=== PATIENT | female | born 1995 | race Caucasian/White ===

== ENCOUNTER 2016-07-08 16:13 | Outpatient (CLI) | payer OTHER, MEDICAID | END 2016-07-08 16:14 | disposition home or self-care (01) | DX: M25.551 Pain in right hip (principal); M54.5 Low back pain; R00.2 Palpitations ==

== ENCOUNTER 2016-09-15 13:20 | Outpatient (CLI) | payer OTHER ==
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
== END 2016-09-15 13:21 | disposition home or self-care (01) ==
LOC: DI 13:20
PROVIDERS: ATTEND Physician Assistant Medical
DX: M51.27 Other intervertebral disc displacement, lumbosacral region (principal); M47.897 Other spondylosis, lumbosacral region; M51.36 Other intervertebral disc degeneration, lumbar region; M43.17 Spondylolisthesis, lumbosacral region
CPT/HCPCS: 72148

== ENCOUNTER 2017-02-14 18:48 | Emergency (ER) | payer OTHER ==
[2017-02-14 19:19] LABS: BILIRUBIN,URINE NEGATIVE (NEGATIVE)
--- NOTE | 2017-02-14 19:20 | ED Physician Documentation ---
History of Present Illness - Stated complaint Stated Complaint: FEMALE - Chief complaint Chief Complaint: General - History obtained from History obtained from: Patient, Family - History of Present Illness Timing: How many days ago (6) Pain level max: 3 Pain level now: 3 Improved by: nothing Worsened by: urinating - Additonal information Additional information: Patient is a 21-year-old female who presents to the emergency department with dysuria for the past week. Was started on Macrobid, states that she has continued to progressively worsen and is now having pain in her kidneys bilaterally. No fevers. Has had nausea but no vomiting. no changes in sexual partner. no STD exposure Review of Systems Ten Systems: 10 systems reviewed and negative Constitutional: denies: Fever, Chills Ears: denies: Ear pain Nose: denies: Rhinorrhea / runny nose, Congestion Throat: denies: Sore throat Cardiac: denies: Chest pain / pressure Respiratory: denies: Cough GI: reports: Nausea. denies: Vomiting : reports: Dysuria, Frequency, Hesitancy, LMP (currently on her menses). denies: Discharge, Now EGA Skin: denies: Rash Musculoskeletal: denies: Neck pain PD PAST MEDICAL HISTORY - Past Medical History Respiratory: Asthma : Kidney stones Psych: Depression Musculoskeletal: Chronic back pain - Past Surgical History Past Surgical History: No - Present Medications Home Medications: Ambulatory Orders Medication Instructions Recorded Confirmed Cyclobenzaprine [Flexeril] 10 mg PO TID PRN #20 tablet 08/29/15 10/28/15 Hydrocodone/Acetaminophen 1 - 2 each PO Q6H PRN #14 tablet 08/29/15 10/28/15 [Hydrocodon-Acetaminophen 5-325] Cyclobenzaprine [Flexeril] 10 mg PO TID PRN #20 tablet 09/13/15 10/28/15 Ibuprofen [Motrin] 800 mg PO Q8H PRN #30 tablet 09/13/15 10/28/15 Oxycodone HCl/Acetaminophen 1 - 2 tab PO Q4H PRN #15 tablet 09/13/15 10/28/15 [Percocet 5-325 mg Tablet] Cyclobenzaprine [Flexeril] 10 mg PO TID PRN #10 tablet 04/15/16 Ciprofloxacin HCl [Cipro] 500 mg PO BID #20 tablet 02/14/17 - Allergies Allergies/Adverse Reactions: Allergies Allergy/AdvReac Type Severity Reaction Status Date / Time Penicillins Allergy Severe Hives Verified 02/14/17 18:52 Sulfa (Sulfonamide Allergy Unknown Nausea Verified 02/14/17 18:52 Antibiotics) milk Allergy Unknown Verified 02/14/17 18:52 - Social History Does the pt smoke?: No Smoking Status: Never smoker Does the pt drink ETOH?: Yes Does the pt have substance abuse?: No - Immunizations Immunizations are current?: Yes - POLST Patient has POLST: No PD ED PE NORMAL - Vitals Vital signs reviewed: Yes - General General: Alert and oriented X 3 - HEENT HEENT: Moist mucous membranes - Neck Neck: Supple, no meningeal sign - Cardiac Cardiac: RRR - Respiratory Respiratory: No respiratory distress, Clear bilaterally - Abdomen Abdomen: Soft, Non tender, Non distended - Female Female : Pt declined - Back Back: No spinal TTP, Other (mild B CVAT. ) - Derm Derm: Warm and dry - Neuro Neuro: Alert and oriented X 3 Results - Vitals Vitals: Vital Signs - 24 hr 02/14/17 02/14/17 18:50 19:35 Temperature 36.2 C L Heart Rate 99 86 Respiratory 16 16 Rate Blood Pressure 147/84 H 142/83 H O2 Saturation 97 100 Oxygen O2 Source Room air - Labs Labs: Laboratory Tests 02/14/17 19:17 Urine Color YELLOW Urine Clarity CLEAR Urine pH 6.0 Ur Specific [place] 1.020 Urine Protein NEGATIVE Urine Glucose (UA) NEGATIVE Urine Ketones NEGATIVE Urine Occult Blood MODERATE H Urine Nitrite NEGATIVE Urine Bilirubin NEGATIVE Urine Urobilinogen 0.2 (NORMAL) Ur Leukocyte Esterase NEGATIVE Urine RBC 0-5 Urine WBC 6-10 H Ur Squamous Epith Cells FEW Squamous Urine Bacteria Rare Ur Microscopic Review INDICATED Urine Culture Comments INDICATED Urine HCG, Qual NEGATIVE PD MEDICAL DECISION MAKING - ED course Complexity details: reviewed results, re-evaluated patient, considered differential, d/w patient, d/w family ED course: Patient is a 21-year-old female who presents to the emergency department with what appears to be a partially treated UTI and now developing bilateral flank pain, concern for early pyelonephritis. Urine was sent for culture. Will start on ciprofloxacin and follow-up with her PCP. She is very well-appearing, nontoxic. Afebrile. Patient counseled regarding signs and symptoms for which I believe and urgent re-evaluation would be necessary. Patient with good understanding of and agreement to plan and is comfortable going home at this time This document was made in part using voice recognition software. While efforts are made to proofread this document, sound alike and grammatical errors may occur. Departure - Departure Disposition: 01 Home, Self Care Clinical Impression: Pyelonephritis Condition: Good Instructions: ED Kidney Infec Female Follow-Up: Ariadna Linda PA-C [Primary Care Provider] - Within 1 week Prescriptions: Ciprofloxacin HCl [Cipro] 500 mg PO BID #20 tablet Comments: Return if you worsen. Take all antibiotics until gone. Discharge Date/Time: 02/14/17 19:54
[2017-02-14 19:22] LABS: HCG UR QUAL NEGATIVE; UA w/ MICROSCOPIC CHARGE YES
[2017-02-14 19:34] LABS: UR CULTURE IF IND INDICATED
[2017-02-14 19:37] VITALS: BP 142/83
[2017-02-14] MEDS ORDERED: CIPROFLOXACIN 250 MG TABLET PO STA (19:39)
[2017-02-14] MEDS ORDERED: CIPROFLOXACIN 250 MG TABLET PO ONE (19:47)
== END 2017-02-14 19:54 | disposition home or self-care (01) ==
LOC: ED 18:48
DX: N12 Tubulo-interstitial nephritis, not specified as acute or chronic (principal); J45.909 Unspecified asthma, uncomplicated; Z87.442 Personal history of urinary calculi
CPT/HCPCS: 81001; 81025; 87086; 99283; A9270; 81003

== ENCOUNTER 2017-02-20 08:00 | Outpatient (CLI) | payer OTHER | END 2017-02-20 08:01 | disposition home or self-care (01) | LOC: LAB.WCP 08:00 | PROVIDERS: ATTEND Physician Assistant Medical | DX: R30.0 Dysuria (principal) | CPT/HCPCS: 87086 ==

== ENCOUNTER 2017-02-25 20:55 | Outpatient (CLI) | payer OTHER ==
--- NOTE | 2017-02-25 22:10 | Ultrasound Preliminary Report ---
Exam: US RETROPERITONEAL IMPRESSION: Normal renal ultrasound. [facility] SITE ID: [id number]
--- NOTE | 2017-02-25 22:12 | Ultrasound Report ---
EXAM: RENAL ULTRASOUND EXAM DATE: 02/25/2017 09:40 PM. CLINICAL HISTORY: FLANK PAIN,RIGHT. COMPARISON: 01/31/2015 CT. TECHNIQUE: Real-time scanning was performed with static images obtained. FINDINGS: Right Kidney: 10.4 x 4.2 x 4.6 cm. Normal echotexture with no stones, contour-deforming masses, or hy dronephrosis. Left Kidney: 10.8 x 4.8 x 5 cm. Normal echotexture with no stones, contour-deforming masses, or hydro nephrosis. Bladder: Bilateral jets seen. The prevoid bladder volume was 518.7 cc. The postvoid bladder volume wa s 1.6 cc. Incidental simple appearing 2.4 cm left ovarian cyst. IMPRESSION: Normal renal ultrasound. [facility] Referring Provider Line: [phone] SITE ID: [id number]
== END 2017-02-25 20:56 | disposition home or self-care (01) ==
LOC: DI 20:55
PROVIDERS: ATTEND Physician Assistant Medical
DX: R10.9 Unspecified abdominal pain (principal)
CPT/HCPCS: 76770

== ENCOUNTER → 2017-02-25 | Outpatient (CLI) | payer OTHER ==
[2017-02-25 12:32] LABS: BASOPHILS # (AUTO) 0.1 10^3/uL (0.0-0.1); BASOPHILS % (AUTO) 0.7 %; EOSINOPHILS # (AUTO) 0.1 10^3/uL (0.0-0.7); EOSINOPHILS % (AUTO) 1.6 %; HCT - HEMATOCRIT 37.7 % (37.0-47.0); LYMPHOCYTES # (AUTO) 3.5 10^3/uL (1.5-3.5); LYMPHOCYTES % (AUTO) 42.1 %; MEAN CORPUSCULAR HGB CONC 34.6 g/dL (32.0-36.0); MEAN CORPUSCULAR VOLUME 83.7 fL (81.0-99.0); MEAN PLATELET VOLUME 7.4 fL (7.9-10.8); MONOCYTES # (AUTO) 0.7 10^3/uL (0.0-1.0); MONOCYTES % (AUTO) 8.6 %; NEUTROPHILS # (AUTO) 3.9 10^3/uL (1.5-6.6); RED CELL DISTRIBUTION WIDTH 12.3 % (12.0-15.0); UNCORRECTED WHITE BLOOD COUNT 8.2 x10^3/uL; WHITE BLOOD COUNT 8.2 x10^3/uL (4.8-10.8)
[2017-02-25 12:57] LABS: ALBUMIN/GLOBULIN RATIO 1.1 (1.0-2.2); BILIRUBIN,TOTAL 0.5 mg/dL (0.2-1.0); CALCIUM 8.9 mg/dL (8.5-10.3); CREATININE 0.6 mg/dL (0.4-1.0); POTASSIUM 3.7 mmol/L (3.5-5.0); TOTAL PROTEIN 7.3 g/dL (6.7-8.2)
== END ==
LOC: LAB.WCP 08:00
PROVIDERS: ATTEND Physician Assistant Medical
DX: R10.9 Unspecified abdominal pain (principal)
CPT/HCPCS: 36415; 80053; 85025

== ENCOUNTER 2017-08-13 10:10 | Outpatient (CLI) | payer OTHER | END 2017-08-13 10:11 | LOC: LAB.WCP 10:10 | PROVIDERS: ATTEND Family Medicine | DX: N39.9 Disorder of urinary system, unspecified (principal); N89.8 Other specified noninflammatory disorders of vagina | CPT/HCPCS: 87086; 87480; 87510; 87660 ==

== ENCOUNTER 2018-07-06 08:00 | Outpatient (CLI) | payer OTHER ==
[2018-07-06 18:51] LABS: BASOPHILS # (AUTO) 0.1 10^3/uL (0.0-0.1); BASOPHILS % (AUTO) 0.7 %; EOSINOPHILS # (AUTO) 0.2 10^3/uL (0.0-0.7); EOSINOPHILS % (AUTO) 2.1 %; HGB - HEMOGLOBIN 13.2 g/dL (12.0-16.0); LYMPHOCYTES # (AUTO) 2.5 10^3/uL (1.5-3.5); LYMPHOCYTES % (AUTO) 31.9 %; MEAN CORPUSCULAR HEMOGLOBIN 28.2 pg (27.0-31.0); MEAN CORPUSCULAR HGB CONC 33.1 g/dL (32.0-36.0); MEAN CORPUSCULAR VOLUME 85.2 fL (81.0-99.0); MEAN PLATELET VOLUME 7.4 fL (7.9-10.8); MONOCYTES # (AUTO) 0.7 10^3/uL (0.0-1.0); MONOCYTES % (AUTO) 8.7 %; NEUTROPHILS # (AUTO) 4.5 10^3/uL (1.5-6.6); NEUTROPHILS % (AUTO) 56.6 %; PLT - PLATELET COUNT 329 10^3/uL (130-450); RED BLOOD COUNT 4.67 10^6/uL (4.20-5.40); RED CELL DISTRIBUTION WIDTH 12.7 % (12.0-15.0); WHITE BLOOD COUNT 7.9 x10^3/uL (4.8-10.8)
[2018-07-06 19:01] LABS: ALBUMIN 3.8 g/dL (3.2-5.5); ALBUMIN/GLOBULIN RATIO 1.1 (1.0-2.2); BILIRUBIN,TOTAL 0.8 mg/dL (0.2-1.0); CALCIUM 9.3 mg/dL (8.5-10.3); CREATININE 0.8 mg/dL (0.4-1.0); PHOSPHORUS 2.7 mg/dL (2.5-4.6); TOTAL PROTEIN 7.4 g/dL (6.7-8.2)
== END 2018-07-06 23:59 | disposition home or self-care (01) ==
LOC: LAB.WCP 08:00
PROVIDERS: ATTEND Physician Assistant Medical
DX: R00.0 Tachycardia, unspecified (principal)
CPT/HCPCS: 36415; 80053; 81001; 81003; 83735; 84100; 84443; 85025; 87086

== ENCOUNTER 2018-07-08 08:00 | Outpatient (CLI) | payer OTHER ==
[2018-07-08 19:35] LABS: BILIRUBIN,URINE NEGATIVE (NEGATIVE); GLUCOSE, URINE (UA) NEGATIVE (NEGATIVE); KETONES,URINE (UA) NEGATIVE (NEGATIVE); LEUKOCYTE ESTERASE, URINE SMALL (NEGATIVE); NITRITE,URINE NEGATIVE (NEGATIVE); OCCULT BLOOD,URINE SMALL (NEGATIVE); PH,URINE 6.5 PH (5.0-7.5); PROTEIN,URINE NEGATIVE (NEGATIVE); UROBILINOGEN,URINE 0.2 (NORMAL) E.U./dL (NORMAL)
[2018-07-08 19:38] LABS: CLARITY,URINE CLEAR (CLEAR)
[2018-07-08 20:00] LABS: BACTERIA,URINE Moderate /HPF (None Seen); RBC,URINE 0-5 /HPF (0-5); SQUAMOUS EPITHELIAL CELL,UR MOD Squamous (<= Few)
== END 2018-07-08 23:59 | disposition home or self-care (01) ==
LOC: LAB.R 08:00
PROVIDERS: ATTEND Physician Assistant Medical
DX: N10 Acute pyelonephritis (principal); R00.0 Tachycardia, unspecified
CPT/HCPCS: 81001; 81003; 87086

== ENCOUNTER 2018-08-10 13:01 | Outpatient (CLI) | payer OTHER ==
--- NOTE | 2018-08-12 11:31 | Ultrasound Report ---
Reason: CERVICAL LYMPHADENOPATHY,LEFT Procedure Date: 08/10/2018 Accession Number: [id number] / [id number] Procedure: US - Head or Neck Soft Tissue CPT Code: FULL RESULT: EXAM: NECK ULTRASOUND EXAM DATE: 08/10/2018 01:32 PM. CLINICAL HISTORY: Cervical lymphadenopathy, left. COMPARISON: None. TECHNIQUE: Real-time sonographic imaging was performed by the residential plumber utilizing color-flow. Multiple rental sales representative static images were saved for review. FINDINGS: Focused ultrasound of the left neck posteriorly to the angle of the left mandible is performed. This demonstrates a well demarcated lobular appearing 2.1 x 1.4 cm hypoechoic heterogeneous mass with suggestion of blood flow peripherally by limited color Doppler. IMPRESSION: Nonspecific mass as described. The differential diagnosis includes an abnormal appearing lymph node as well as benign etiologies such as impacted branchial cleft cyst. RECOMMENDATION: Unless the etiology/clinical situation is clear, recommendation is for additional imaging by CT of the neck with contrast or by MRI with and without contrast. [facility]
== END 2018-08-10 13:02 | disposition home or self-care (01) ==
LOC: DI 13:01
PROVIDERS: ATTEND Nurse Practitioner
DX: R22.1 Localized swelling, mass and lump, neck (principal)
CPT/HCPCS: 76536

== ENCOUNTER 2018-09-27 08:00 | Outpatient (CLI) | payer OTHER | END 2018-09-27 23:59 | disposition home or self-care (01) | LOC: LAB.R 08:00 | PROVIDERS: ATTEND Physician Assistant Medical | DX: K11.9 Disease of salivary gland, unspecified (principal) | CPT/HCPCS: 87086 ==

== ENCOUNTER 2018-10-18 16:00 | Outpatient (CLI) | payer OTHER | END 2018-10-18 23:59 | disposition home or self-care (01) | LOC: LAB.R 16:00 | PROVIDERS: ATTEND Physician Assistant Medical | DX: N10 Acute pyelonephritis (principal) | CPT/HCPCS: 87086 ==

== ENCOUNTER → 2019-05-05 | Outpatient (CLI) | payer OTHER | LOC: LAB.R 09:00 | PROVIDERS: ATTEND Physician Assistant Medical | DX: R30.0 Dysuria (principal) | CPT/HCPCS: 87086 ==

== ENCOUNTER 2019-12-23 15:01 | Emergency (ER) | payer OTHER ==
[2019-12-23] MEDS ORDERED: ONDANSETRON ODT 4 MG TABLET TL STA (15:44)
[2019-12-23] MEDS ORDERED: ACETAMINOPHEN 325 MG TABLET PO STA (15:44)
--- NOTE | 2019-12-23 15:55 | ED Physician Documentation ---
History of Present Illness - Stated complaint Stated Complaint: SHULTZ,NAUSEA - Chief complaint Chief Complaint: Trauma Hd/Nk - History obtained from History obtained from: Patient - History of Present Illness Timing: Today Pain level max: 6 Pain level now: 5 - Additonal information Additional information: Patient is a 24-year-old female who was at work today when she was working on a hot tub, the lid fell off of the hot tub, striking her on the top of the head. No loss of consciousness. Does have right-sided neck pain. Worse with movement and better with rest. Has had nausea and vomited on the way to the emergency department. She is not on any medications at home other than gabapentin. Denies any possibility of . Review of Systems Constitutional: denies: Fever, Chills Nose: denies: Rhinorrhea / runny nose, Congestion Respiratory: denies: Cough GI: reports: Nausea, Vomiting. denies: Diarrhea Skin: denies: Rash Musculoskeletal: reports: Neck pain Neurologic: denies: Focal weakness, Numbness, Confused, Altered mental status PD PAST MEDICAL HISTORY - Past Medical History Respiratory: Asthma : Kidney stones Psych: Depression Musculoskeletal: Chronic back pain - Past Surgical History Past Surgical History: No - Present Medications Home Medications: Ambulatory Orders Medication Instructions Recorded Confirmed Cyclobenzaprine [Flexeril] 10 mg PO TID PRN #20 tablet 08/29/15 10/28/15 Hydrocodone/Acetaminophen 1 - 2 each PO Q6H PRN #14 tablet 08/29/15 10/28/15 [Hydrocodon-Acetaminophen 5-325] Cyclobenzaprine [Flexeril] 10 mg PO TID PRN #20 tablet 09/13/15 10/28/15 Ibuprofen [Motrin] 800 mg PO Q8H PRN #30 tablet 09/13/15 10/28/15 Oxycodone HCl/Acetaminophen 1 - 2 tab PO Q4H PRN #15 tablet 09/13/15 10/28/15 [Percocet 5-325 mg Tablet] Cyclobenzaprine [Flexeril] 10 mg PO TID PRN #10 tablet 04/15/16 Ciprofloxacin HCl [Cipro] 500 mg PO BID #20 tablet 02/14/17 Naphazoline HCl/Pheniramine 10 ml OP TID PRN 7 Days #1 bottle 08/25/19 [Naphcon-A Eye Drops] Ondansetron Odt [Zofran] 4 mg TL Q6H PRN #10 tablet 12/23/19 - Allergies Allergies/Adverse Reactions: Allergies Allergy/AdvReac Type Severity Reaction Status Date / Time Penicillins Allergy Severe Hives Verified 12/23/19 15:10 Sulfa (Sulfonamide Allergy Unknown Nausea Verified 12/23/19 15:10 Antibiotics) milk Allergy Unknown Verified 12/23/19 15:10 - Social History Does the pt smoke?: No Smoking Status: Never smoker Does the pt drink ETOH?: Yes Does the pt have substance abuse?: No - Immunizations Immunizations are current?: Yes - POLST Patient has POLST: No PD ED PE NORMAL - Vitals Vital signs reviewed: Yes - General General: Alert and oriented X 3, No acute distress - HEENT HEENT: Atraumatic, PERRL, EOMI, Ears normal, Moist mucous membranes - Neck Neck: Supple, no meningeal sign, Other (TTP R paraspinal. No midline TTP to palp ation or percussion. no stepoff or deformity. no neuro deficits.) - Cardiac Cardiac: RRR, Strong equal pulses - Respiratory Respiratory: No respiratory distress, Clear bilaterally - Derm Derm: Warm and dry - Neuro Neuro: Alert and oriented X 3 Results - Vitals Vitals: Vital Signs - 24 hr 12/23/19 12/23/19 15:06 16:31 Temperature 37 C Heart Rate 95 80 Respiratory 16 14 Rate Blood Pressure 124/82 H 129/75 O2 Saturation 100 100 Oxygen O2 Source Room air - Rads (name of study) head CT Radiology: Prelim report reviewed, EMP read contemporaneously, See rad report (no acute abnormality.) PD MEDICAL DECISION MAKING - ED course Complexity details: reviewed results, re-evaluated patient, considered differential, d/w patient ED course: Normal head CT. Appears to have a concussion. Feels better after Zofran and Tylenol. Will prescribe Zofran for home. Patient is well-appearing, nontoxic. Afebrile. No neurological deficits. No evidence of cervical spine fracture. Negative Nexus criteria. Patient counseled regarding signs and symptoms for which I believe and urgent re-evaluation would be necessary. Patient with good understanding of and agreement to plan and is comfortable going home at this time This document was made in part using voice recognition software. While efforts are made to proofread this document, sound alike and grammatical errors may occur. Departure - Departure Disposition: 01 Home, Self Care Clinical Impression: Concussion Qualifiers: Encounter type: initial encounter Loss of consciousness presence/duration: without LOC Qualified Code(s): S06.0X0A - Concussion without loss of consciousness, initial encounter Condition: Good Instructions: ED Head Injury Closed Follow-Up: Ariadna Linda PA-C [Primary Care Provider] - Within 1 week Prescriptions: Ondansetron Odt [Zofran] 4 mg TL Q6H PRN #10 tablet PRN Reason: Nausea / Vomiting Comments: Return if you worsen. Go home and rest. This should improve over the next few days. You can use Zofran as needed for nausea and/or vomiting. Forms: Activity restrictions Discharge Date/Time: 12/23/19 16:30
--- NOTE | 2019-12-23 16:09 | CT Report ---
PROCEDURE: HEAD WO INDICATIONS: head injury, vomiting TECHNIQUE: Noncontrast 4.5 mm thick angled axial sections acquired from the foramen magnum to the vertex. For r adiation dose reduction, the following was used: automated exposure control, adjustment of mA and/or kV according to patient size. COMPARISON: None. FINDINGS: Image quality: Excellent. CSF spaces: Basal cisterns are patent. No extra-axial fluid collections. Ventricles are normal in size and shape. Brain: No intracranial hemorrhage, mass, or mass effect. Queen-white matter interface appears preser laura. Skull and face: Calvarium and visualized facial bones are intact, without suspicious lesions. Sinuses: Visualized sinuses and mastoids are clear. IMPRESSION: 1. No acute intracranial abnormality. Reviewed by: Stephen Almaguer MD on 12/23/2019 4:07 PM PDT Approved by: Stephen Almaguer MD on 12/23/2019 4:07 PM PDT Station ID: [id number]
[2019-12-23 16:31] VITALS: BP 129/75
== END 2019-12-23 16:30 | disposition home or self-care (01) ==
LOC: ED 15:01
DX: S06.0X0A Concussion without loss of consciousness, initial encounter (principal); W20.8XXA Other cause of strike by thrown, projected or falling object, initial encounter; Y93.89 Activity, other specified; Y99.0 Civilian activity done for income or pay
CPT/HCPCS: 70450; 99284; A9270; Q0162

== ENCOUNTER 2020-01-04 08:00 | Outpatient (CLI) | payer OTHER | END 2020-01-04 23:59 | disposition home or self-care (01) | LOC: LAB.WCP 08:00 | PROVIDERS: ATTEND Physician Assistant Medical | DX: R30.0 Dysuria (principal) | CPT/HCPCS: 87086 ==

== ENCOUNTER 2020-01-10 15:20 | Outpatient (CLI) | payer OTHER ==
[2020-01-10 18:09] LABS: BASOPHILS # (AUTO) 0.1 10^3/uL (0.0-0.1); BASOPHILS % (AUTO) 0.6 %; EOSINOPHILS # (AUTO) 0.2 10^3/uL (0.0-0.7); EOSINOPHILS % (AUTO) 1.6 %; HGB - HEMOGLOBIN 13.1 g/dL (12.0-16.0); LYMPHOCYTES # (AUTO) 2.6 10^3/uL (1.5-3.5); LYMPHOCYTES % (AUTO) 26.8 %; MEAN CORPUSCULAR HGB CONC 32.7 g/dL (32.0-36.0); MEAN CORPUSCULAR VOLUME 88.7 fL (81.0-99.0); MEAN PLATELET VOLUME 9.5 fL (7.9-10.8); MONOCYTES # (AUTO) 0.7 10^3/uL (0.0-1.0); MONOCYTES % (AUTO) 7.8 %; NEUTROPHILS % (AUTO) 62.7 %; PLT - PLATELET COUNT 374 10^3/uL (130-450); RED BLOOD COUNT 4.52 10^6/uL (4.20-5.40); RED CELL DISTRIBUTION WIDTH 12.4 % (12.0-15.0); WHITE BLOOD COUNT 9.5 x10^3/uL (4.8-10.8)
[2020-01-10 18:32] LABS: ALBUMIN/GLOBULIN RATIO 1.1 (1.0-2.2); BILIRUBIN,TOTAL 0.7 mg/dL (0.2-1.0); CALCIUM 9.5 mg/dL (8.5-10.3); CREATININE 0.8 mg/dL (0.4-1.0); TOTAL PROTEIN 7.5 g/dL (6.7-8.2)
== END 2020-01-10 23:59 | disposition home or self-care (01) ==
LOC: LAB.WCP 15:20
PROVIDERS: ATTEND Nurse Practitioner
DX: R10.9 Unspecified abdominal pain (principal)
CPT/HCPCS: 36415; 80053; 85025

== ENCOUNTER 2020-01-10 19:26 | Outpatient (CLI) | payer OTHER ==
--- NOTE | 2020-01-10 20:55 | Ultrasound Report ---
PROCEDURE: Retroperitoneal INDICATIONS: LEFT FLANK PAIN TECHNIQUE: Real-time scanning was performed of the retroperitoneal organs, with image documentation. COMPARISON: Retroperitoneal ultrasound dated 02/25/2017. FINDINGS: Kidneys: Kidneys are normal in size. Right kidney measures 10.3 cm long; left kidney measures 10.6 cm long. Right renal cortical thickness is 1.6 cm; left renal cortical thickness is 1.6 cm. No arleen d masses, hydronephrosis, or nephrolithiasis. Bladder: Pre-void bladder volume is 862 mL. Post-void residual is 2 mL. Pre-void images demonstrat e no intraluminal masses or stones. On pre-void images, right and left ureteral jets are noted with color Doppler interrogation. (Of note, ureteral jets may not be detectable in up to 25% of cases due to insufficient differences in specific gravity between ureteral and bladder urine). Miscellaneous: No free pelvic fluid. IMPRESSION: 1. Distended urinary bladder without significant post void residual volume. 2. No hydronephrosis or nephrolithiasis. Reviewed by: Pancho Oneal MD on 01/10/2020 8:54 PM PDT Approved by: Pancho Oneal MD on 01/10/2020 8:54 PM PDT Station ID: [id number]
== END 2020-01-10 19:27 | disposition home or self-care (01) ==
LOC: DI 19:26
PROVIDERS: ATTEND Nurse Practitioner
DX: R10.9 Unspecified abdominal pain (principal); N32.89 Other specified disorders of bladder
CPT/HCPCS: 76770

== ENCOUNTER 2021-01-23 18:45 | Outpatient (CLI) | payer OTHER | END 2021-01-23 18:46 | disposition home or self-care (01) | LOC: LAB 18:45 | PROVIDERS: ATTEND Physician Assistant Medical | DX: Z32.00 Encounter for pregnancy test, result unknown (principal) | CPT/HCPCS: 36415; 84702 ==

== ENCOUNTER 2021-01-25 18:10 | Outpatient (CLI) | payer OTHER | END 2021-01-25 18:11 | disposition home or self-care (01) | LOC: LAB 18:10 | PROVIDERS: ATTEND Midwife | DX: Z36.87 Encounter for antenatal screening for uncertain dates (principal) | CPT/HCPCS: 36415; 84144; 84702 ==

== ENCOUNTER 2021-04-21 16:30 | Outpatient (CLI) | payer OTHER, MEDICAID ==
--- NOTE | 2021-04-21 18:31 | Ultrasound Report ---
PROCEDURE: OB Limited INDICATIONS: VAG BLEEDING. LORENZO PALP MASS PER PCP OUTSIDE/PRIOR DATING DATA: Last menstrual period (LMP): December 19, 2021. LMP-based estimated date of delivery (JEYSON): September 25, 2021. First dating scan (date and location): [facility]; February 11, 2021. Estimated date of delivery (JEYSON) from first dating scan: September 28, 2021. TECHNIQUE: Real-time scanning was performed of the fetus, with image documentation. COMPARISON: None. FINDINGS: A single living intrauterine gestation is present. Presentation: Transverse, maternal left Placenta: Placental position is posterior, without previa. Amniotic fluid index: 15.7 cm, 5.9 cm deepest pocket. heart rate: 158 beats per minutes. Maternal cervical canal: 6.2 cm long; normal length is 2.5 cm or more. IMPRESSION: Live single intrauterine gestation as detailed above. Reviewed by: Ventura Wynne MD on 04/21/2021 6:30 PM PST Approved by: Ventura Wynne MD on 04/21/2021 6:30 PM PST Station ID: [id number]
--- NOTE | 2021-04-22 22:40 | Ultrasound Report ---
PROCEDURE: OB Transvaginal INDICATIONS: VAG BLEEDING. LORENZO PALP MASS PER PCP OUTSIDE/PRIOR DATING DATA: Last menstrual period (LMP): December 19, 2021. LMP-based estimated date of delivery (JEYSON): September 25, 2021. First dating scan (date and location): [facility]; February 11, 2021. Estimated date of delivery (JEYSON) from first dating scan: September 28, 2021. TECHNIQUE: Real-time transvaginal scanning was performed of the fetus, with image documentation. COMPARISON: None. FINDINGS: A single living intrauterine gestation is present. Presentation: Transverse, maternal left Placenta: Placental position is posterior, without previa. Amniotic fluid index: 15.7 cm, 5.9 cm deepest pocket. heart rate: 158 beats per minutes. Maternal cervical canal: 6.2 cm long; normal length is 2.5 cm or more. IMPRESSION: Live single intrauterine gestation as detailed above. Reviewed by: Chay Valera MD on 04/22/2021 10:39 PM PST Approved by: Chay Valera MD on 04/22/2021 10:39 PM PST Station ID: [id number]
== END 2021-04-21 16:31 | disposition home or self-care (01) ==
LOC: DI 16:30
PROVIDERS: ATTEND Midwife
DX: O46.92 Antepartum hemorrhage, unspecified, second trimester (principal); O34.592 Maternal care for other abnormalities of gravid uterus, second trimester; Z3A.00 Weeks of gestation of pregnancy not specified

== ENCOUNTER 2021-05-30 20:15 | Outpatient (CLI) | payer OTHER, MEDICAID ==
--- NOTE | 2021-05-30 22:25 | Ultrasound Report ---
PROCEDURE: OB Limited INDICATIONS: CONTRACTIONS CX L OUTSIDE/PRIOR DATING DATA: Last menstrual period (LMP): 12/19/2020. LMP-based estimated date of delivery (JEYSON): 09/25/2021. First dating scan (date and location): 02/11/2021. Estimated date of delivery (JEYSON) from first dating scan: 09/28/2021. The below data below was generated using the ultrasound JEYSON of 09/28/2021 TECHNIQUE: Real-time scanning was performed of the fetus, with image documentation. Endovaginal scanning: Performed COMPARISON: 04/21/2021. FINDINGS: A single living intrauterine gestation is present. Presentation: Breech Placenta: Placental position is posterior, without previa. Amniotic fluid index: 15.9 cm, within normal limits for gestational age. heart rate: 143 beats per minutes. Maternal cervical canal: 3. 3-4 cm long, closed; normal length is 2.5 cm or more. Estimated gestational age from initial scan: 22 weeks 5 days. IMPRESSION: 1. Living second trimester intrauterine . 2. Cervix is long and closed. Reviewed by: Aiden Kruse MD on 05/30/2021 10:23 PM PST Approved by: Aiden Kruse MD on 05/30/2021 10:23 PM PST Station ID: [id number]
--- NOTE | 2021-05-30 22:25 | Ultrasound Report ---
PROCEDURE: OB Limited INDICATIONS: CONTRACTIONS CX L OUTSIDE/PRIOR DATING DATA: Last menstrual period (LMP): 12/19/2020. LMP-based estimated date of delivery (JEYSON): 09/25/2021. First dating scan (date and location): 02/11/2021. Estimated date of delivery (JEYSON) from first dating scan: 09/28/2021. The below data below was generated using the ultrasound JEYSON of 09/28/2021 TECHNIQUE: Real-time scanning was performed of the fetus, with image documentation. Endovaginal scanning: Performed COMPARISON: 04/21/2021. FINDINGS: A single living intrauterine gestation is present. Presentation: Breech Placenta: Placental position is posterior, without previa. Amniotic fluid index: 15.9 cm, within normal limits for gestational age. heart rate: 143 beats per minutes. Maternal cervical canal: 3. 3-4 cm long, closed; normal length is 2.5 cm or more. Estimated gestational age from initial scan: 22 weeks 5 days. IMPRESSION: 1. Living second trimester intrauterine . 2. Cervix is long and closed. Reviewed by: Aiden Kruse MD on 05/30/2021 10:24 PM PST Approved by: Aiden Kruse MD on 05/30/2021 10:24 PM PST Station ID: [id number]
== END 2021-05-30 20:16 | disposition home or self-care (01) ==
LOC: DI 20:15
PROVIDERS: ATTEND Midwife
DX: O60.02 Preterm labor without delivery, second trimester (principal); Z3A.22 22 weeks gestation of pregnancy

== ENCOUNTER 2022-01-16 08:00 | Outpatient (CLI) | payer MEDICAID, OTHER ==
--- NOTE | 2022-01-16 16:45 | XRAY Report ---
PROCEDURE: Finger(s) RT INDICATIONS: RIGHT THUMB PAIN TECHNIQUE: AP hand, 3 views of the first finger(s) acquired. COMPARISON: None FINDINGS: Bones: No fractures or dislocations. No suspicious bony lesions. Soft tissues: No suspicious soft tissue calcifications. IMPRESSION: No visualized acute fracture or dislocation. However, occult injury cannot be excluded. Recommend ming rt interval imaging follow-up in 7-10 days as clinically indicated for additional evaluation. Reviewed by: Marilyn Ramirez MD on 01/16/2022 4:43 PM PDT Approved by: Marilyn Ramirez MD on 01/16/2022 4:43 PM PDT Station ID: [id number]
== END 2022-01-16 23:59 | disposition home or self-care (01) ==
LOC: DI.S 08:00
PROVIDERS: ATTEND Physician Assistant
DX: M79.644 Pain in right finger(s) (principal)

== ENCOUNTER 2023-11-20 08:06 | Outpatient (CLI) | payer MEDICAID ==
[~2023-11-20 08:06] MED LIST: GADOTERATE MEGLUMINE 7.5 MMOL/15 ML VIAL ONE
[2023-11-20] MEDS: GADOTERATE MEGLUMINE 7.5 MMOL/15 ML VIAL IVP ONE (08:57)
--- NOTE | 2023-11-21 12:21 | MRI Report ---
PROCEDURE: Brain W/WO INDICATIONS: MIGRAINE CONTRAST: CLARISCAN 14.0 ML TECHNIQUE: Noncontrast axial T1 spin echo, axial T2 fast spin echo, sagittal and axial FLAIR, coronal T2 fast sp in echo, axial gradient echo, axial diffusion and ADC through the brain. After the administration of contrast, axial and coronal T1 spin echo with fat saturation through the brain. COMPARISON: None. FINDINGS: Image quality: Excellent. CSF spaces: Basal cisterns are patent. No extra-axial fluid collections. Ventricles are normal in size and shape. Brain: No midline shift. No intracranial bleeds or masses. No abnormal intracranial enhancement. The brainstem appears normal. Diffusion-weighted images demonstrate no acute ischemic insults. No c hronic ischemic insults. Normal intravascular flow voids are present. The cerebellar tonsils demonst rate normal shape and are not low-lying. Skull and face: Calvarial marrow is normal in signal. Orbits appear normal. Sinuses: Sinuses and mastoids appear clear. IMPRESSION: Normal brain MRI, without a cause of headache identified. No masses or abnormal enhancement can be seen. Negative for Chiari I malformation or hydrocephalus. Reviewed by: Sanchez Peng MD on 11/21/2023 11:19 AM [facility] Approved by: Sanchez Peng MD on 11/21/2023 11:19 AM SAN[facility] Station ID: [id number]
== END 2023-11-20 08:07 | disposition home or self-care (01) ==
LOC: DI 08:06
PROVIDERS: ATTEND Physician Assistant Medical
DX: G43.909 Migraine, unspecified, not intractable, without status migrainosus (principal)